=== PATIENT | female | born 1940 | race Caucasian/White ===

== ENCOUNTER → 2020-07-23 | Outpatient (CLI) | payer MEDICARE, BC ==
--- NOTE | 2020-07-23 13:21 | CT ---
EXAMINATION TYPE: CT pelvis w con DATE OF EXAM: 07/23/2020 COMPARISON: None. HISTORY: right groin pain/swelling CT DLP: 1530.7 mGycm Automated exposure control for dose reduction was used. CONTRAST: Performed with oral and with IV Contrast, patient injected with 100 mL of Isovue 300. FINDINGS: Cholecystectomy clips. There is 2.5 cm thin-walled cyst posteriorly in the right kidney axial image 1 7 series 4. There is slightly larger 3.6 cm central lower pole right renal thin-walled cyst axial saul ge 22. No hydronephrosis bilaterally. Contrast reaches the level of sacrum. Diverticulosis left and sigmoid colon. No acute diverticulitis. Mild to moderate calcified plaque of the aorta extends into branch vessels. Uterus is surgically absent or markedly atrophic. Prominent bilateral groin lymph nodes for reference there is a 1.7 x 0.9 cm right groin lymph noted a xial image 55. Similar prominent but subcentimeter lymph nodes noted in the left groin. No abnormal g reater than 1 cm pelvic and groin lymph nodes. No groin hernia. IMPRESSION: No obvious mass or suspicious adenopathy.
--- NOTE | 2020-07-23 15:34 | US ---
EXAMINATION TYPE: US venous doppler duplex LE DATE OF EXAM: 07/23/2020 11:22 AM COMPARISON: NONE CLINICAL HISTORY: I82.409 ACUTE EMBOLISM AND THROMBOSIS OF UNSPECIFIED DEEP VE. SIDE PERFORMED: Bilateral TECHNIQUE: The lower extremity deep venous system is examined utilizing real time linear array sonog jessy with graded compression, doppler sonography and color-flow sonography. VESSELS IMAGED: Common Femoral Vein Deep Femoral Vein Greater Saphenous Vein * Femoral Vein Popliteal Vein Small Saphenous Vein * Proximal Calf Veins (* superficial vessels) Right Leg: Negative for DVT Left Leg: Negative for DVT IMPRESSION: 1. Bilateral lower extremity ultrasound negative for deep venous thrombosis.
== END | disposition home or self-care (01) ==
LOC: RADCTMAIN 10:04
PROVIDERS: ATTEND Surgery Plastic and Reconstructive Surgery
DX: I82.409 Acute embolism and thrombosis of unspecified deep veins of unspecified lower extremity (principal); C85.10 Unspecified B-cell lymphoma, unspecified site; Z01.818 Encounter for other preprocedural examination
CPT/HCPCS: 82565; 84520; 93970; 72193; 36415; Q9967